=== PATIENT | female | born 1960 | race Two or more races ===

== ENCOUNTER 2019-02-27 04:17 | Emergency (ER) | payer BC ==
[2019-02-27] MEDS ORDERED: ASPIRIN 81 MG CHEWABLE TABLET PO ONE (04:32)
[2019-02-27 04:42] LABS: ABSOLUTE NEUTROPHIL COUNT 3.24; BASO % 0.3 % (0-6); EOS % 1.9 % (0-6); GRAN % 51.6 % (47-80); HEMATOCRIT 46.2 % (35.0-47.0); HEMOGLOBIN 15.6 gm/dl (11.6-16.0); LYMPH % 40.2 % (16-45); MEAN CELL VOLUME 94.5 fl (81-97); MEAN CORPUSCULAR HEMOGLOBIN 31.9 pg (27-33); MEAN CORPUSCULAR HGB CONC 33.8 g/dl (32-36); MEAN PLATELET VOLUME 9.1 fl (7.4-10.4); PLATELET COUNT 341 K/uL (130-400); RED BLOOD COUNT 4.89 M/uL (3.80-5.40); RED CELL DISTRIBUTION WIDTH 15.1 % (11.5-14.5); WHITE BLOOD COUNT W/O DIFF 6.3 K/uL (4.2-12.2)
[2019-02-27] MEDS: NITROGLYCERIN 0.4MG SL TABLET #25 BTL SL PRN ×3 (04:45→04:57)
--- NOTE | 2019-02-27 04:53 | Emergency Department Record ---
History of Present Illness - General Chief Complaint: Chest Pain Stated Complaint: CHEST PAIN Time Seen by Provider: 02/27/19 04:25 Source: Patient Mode of Arrival: Ambulatory Limitations: No limitations - History of Present Illness Initial Comments: pt has cp since yesterday. she states it got better when she came home from work and rested but then got worse again. it is 5/10. it radiated to her r arm. she has hi choleseterol and strong family hx with her brother and fahter having MIs MD Complaint: Chest pain Onset/Timin -: Days(s) Onset: Awoke with symptoms Pain Location: Substernal Pain Radiation: RUE Severity: Moderate Severity scale (1-10): 5 Quality: Dull, Heaviness Consistency: Constant Improves With: Rest Worsens With: Nothing Anginal Symptoms: Nausea Treatments Prior to Arrival: None - Related Data Home Medications Medication Instructions Recorded Confirmed Last Taken Atorvastatin Calcium [Lipitor] 10 mg PO DAILY 02/27/19 02/27/19 02/27/19 Hydrocodone/Acetaminophen 1 tab PO TID PRN 02/27/19 02/27/19 02/26/19 [Hydrocodone/Acetaminophen 7.5mg/325mg] Lorazepam 1 tab PO TID PRN 02/27/19 02/27/19 02/24/19 Allergies Allergy/AdvReac Type Severity Reaction Status Date / Time latex Allergy RASH Verified 02/27/19 04:32 Travel Screening - Travel/Exposure Within Last 30 Days Have you traveled within the last 30 days?: Yes Location Detail:: [place] - Travel/Exposure Within Last Year Have you traveled outside the [place] in the last year?: No - Additonal Travel Details Have you been exposed to anyone with a communicable illness?: No - Travel Symptoms Symptom Screening: None Review of Systems Reviewed: No additional complaints except as noted below Constitutional: Reports: As per HPI. Denies: Chills, Fever, Malaise, Night sweats, Weakness, Weight change Eyes: Reports: As per HPI. Denies: Eye discharge, Eye pain, Photophobia, Vision change ENT: Reports: As per HPI. Denies: Congestion, Dental pain, Ear pain, Epistaxis, Hearing loss, Throat pain Respiratory: Reports: As per HPI. Denies: Cough, Dyspnea, Hemoptysis, Stridor, Wheezes Cardiovascular: Reports: As per HPI, Chest pain. Denies: Arrhythmia, Dyspnea on exertion, Edema, Murmurs, Orthopnea, Palpitations, Paroxysmal nocturnal dyspnea, Rheumatic Fever, Syncope Endocrine: Reports: As per HPI. Denies: Fatigue, Heat or cold intolerance, Polydipsia, Polyuria Gastrointestinal: Reports: As per HPI, Nausea. Denies: Abdominal pain, Constipation, Diarrhea, Hematemesis, Hematochezia, Melena, Vomiting Genitourinary: Reports: As per HPI. Denies: Abnormal menses, Discharge, Dyspareunia, Dysuria, Frequency, Hematuria, Incontinence, Retention, Urgency Musculoskeletal: Reports: As per HPI. Denies: Arthralgia, Back pain, Gout, Joint swelling, Myalgia, Neck pain Skin: Reports: As per HPI. Denies: Bruising, Change in color, Change in hair/nails, Lesions, Pruritus, Rash Neurological: Reports: As per HPI. Denies: Abnormal gait, Confusion, Headache, Numbness, Paresthesias, Seizure, Tingling, Tremors, Vertigo, Weakness Psychiatric: Reports: As per HPI. Denies: Anxiety, Auditory hallucinations, Depression, Homicidal thoughts, Suicidal thoughts, Visual hallucinations Hematological/Lymphatic: Reports: As per HPI. Denies: Anemia, Blood Clots, Easy bleeding, Easy bruising, Swollen glands Past Medical History - SOCIAL HISTORY Smoking Status: Former smoker Alcohol Use: Rare Drug Use: Rare Drug Use Detail:: Marijuana - RESPIRATORY Hx Respiratory Disorders: Yes Hx Bronchitis: Yes - CARDIOVASCULAR Hx Cardio Disorders: No - NEURO Hx Neuro Disorders: No - GI Hx GI Disorders: No - Hx Genitourinary Disorders: No - ENDOCRINE Hx Endocrine Disorders: No - MUSCULOSKELETAL Hx Musculoskeletal Disorders: Yes Hx Arthritis: Yes - PSYCH Hx Psych Problems: Yes Hx Anxiety: Yes Hx Depression: Yes Family Medical History Any Significant Family History?: No Hx Heart Disease: Father, Brother/Sister Physical Exam - General General Appearance: Alert, Oriented x3, Cooperative, Mild distress - Head Head exam: Normal inspection - Eye Eye exam: Normal appearance, PERRL, EOMI Pupils: Normal accommodation - ENT ENT exam: Normal exam, Mucous membranes moist, Normal external ear exam, Normal orophraynx Ear exam: Normal external inspection. negative: External canal tenderness Nasal Exam: Normal inspection. negative: Discharge, Sinus tenderness Mouth exam: Normal external inspection, Tongue normal Teeth exam: Normal inspection. negative: Dental caries Throat exam: Normal inspection. negative: Tonsillar erythema, Tonsillar exudate - Neck Neck exam: Normal inspection, Full ROM. negative: Tenderness - Respiratory Respiratory exam: Normal lung sounds bilaterally. negative: Respiratory distress - Cardiovascular Cardiovascular Exam: Regular rate, Normal rhythm, Normal heart sounds - GI/Abdominal GI/Abdominal exam: Soft, Normal bowel sounds. negative: Tenderness - Rectal Rectal exam: Deferred - exam: Deferred - Extremities Extremities exam: Normal inspection, Full ROM, Normal capillary refill. negative: Tenderness - Back Back exam: Reports: Normal inspection, Full ROM. Denies: Muscle spasm, Rash noted, Tenderness - Neurological Neurological exam: Alert, CN II-XII intact, Normal gait, Oriented X3 - Psychiatric Psychiatric exam: Normal affect, Normal mood - Skin Skin exam: Dry, Intact, Normal color, Warm Course Vital Signs 02/27/19 02/27/19 04:25 04:46 Temperature 98.9 F Pulse Rate [ 68 [employer] ] Pulse Rate [ 72 Left] Respiratory 18 Rate Blood Pressure 138/93 135/88 [Left Arm] Pulse Ox 97 - Reevaluation(s) Reevaluation #1: 02/27/19 06:05 pt still having pain after ntg, toradol helped slightly Medical Decision Making - Lab Data Result diagrams: 02/27/19 04:30 02/27/19 04:30 Lab Results 02/27/19 Range/Units 04:30 WBC 6.3 (4.2-12.2) K/uL RBC 4.89 (3.80-5.40) M/uL Hgb 15.6 (11.6-16.0) gm/dl Hct 46.2 (35.0-47.0) % MCV 94.5 (81-97) fl MCH 31.9 (27-33) pg MCHC 33.8 (32-36) g/dl RDW 15.1 H (11.5-14.5) % Plt Count 341 (130-400) K/uL MPV 9.1 (7.4-10.4) fl Gran % 51.6 (47-80) % Lymphocytes % 40.2 (16-45) % Monocytes % 6.0 (0-9) % Eosinophils % 1.9 (0-6) % Basophils % 0.3 (0-6) % Absolute Neutrophils 3.24 Disposition Disposition: Transfer Clinical Impression: Chest pain Qualifiers: Chest pain type: unspecified Qualified Code(s): R07.9 - Chest pain, unspecified Disposition: Acute Care Hospital Transfer Transfer To: [facility] 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
[2019-02-27 04:59] LABS: BLOOD UREA NITROGEN 17 mg/dL (8-23); CREATININE 0.5 mg/dL (0.5-0.9); EST GLOMERULAR FILTRATION RATE > 60 mL/min
[2019-02-27 05:02] LABS: GLUCOSE,RANDOM 114 mg/dL (74-109)
[2019-02-27 05:05] LABS: CREATINE PHOSPHOKINASE 131 U/L (26-192)
[2019-02-27 05:07] LABS: CKMB 2.5 ng/mL (<3.77)
[2019-02-27] MEDS ORDERED: ONDANSETRON HCL IV 4 MG/2 ML VIAL IVP ONE (05:11)
[2019-02-27] MEDS ORDERED: KETOROLAC 30 MG/ML VIAL IVP ONE (05:11)
[2019-02-27] MEDS ORDERED: MORPHINE SULFATE 5 MG/ML VIAL IVP ONE ×2 (06:02→07:02)
[2019-02-27] MEDS ORDERED: MAGNESIUM HYDROXIDE/AL HYDROX 30 ML, LIDOCAINE VISC 2% 15ML 15 ML PO ONE ×2 (07:34)
--- NOTE | 2019-02-27 07:53 | RADIOLOGY REPORT ---
EXAMINATION: Two View Chest Radiographs EXAM DATE: 02/27/2019 7:51 AM TECHNIQUE: Frontal and lateral views INDICATION: chest pain COMPARISON: None ENCOUNTER: Not applicable FINDINGS: Cardiomediastinal structures unremarkable. No pulmonary consolidation or infiltration. No pneumothora x or pleural effusion. Cholecystectomy. IMPRESSION: No acute abnormality Dictated by: Hubert Mccall MD on 02/27/2019 7:52 AM. .
--- NOTE | 2019-02-27 09:08 | CT ANGIOGRAM REPORT ---
EXAMINATION: CT Angiography of the Thorax EXAM DATE: 02/27/2019 8:45 AM TECHNIQUE: Standard protocol CT angiogram images were obtained through the chest following the admini stration of intravenous contrast. Coronal and sagittal MIP 3-D reformations were performed. IV Contrast: The amount and type of contrast are recorded in the medical record. INDICATION: CP radiating to the back.. COMPARISON: Chest x-ray: 02/27/2019 ENCOUNTER: Not applicable FINDINGS: Pulmonary Artery: No pulmonary embolism is present. Aorta: No thoracic aortic aneurysm or dissection is present. On the noncontrast images there is no i ntramural hematoma in the wall of the aorta. The aorta is well enhanced and are normal in caliber. Th ere is minimal atherosclerotic calcification noted. Right Heart Strain: None. Heart : There is no pericardial effusion. The heart size is normal. There is minimal coronary artery calcification. Nirali and Mediastinum: No lymphadenopathy. Lung Parenchyma: There is mild dependent atelectasis. There is no focal infiltrate or pulmonary mass . Central Airways: Normal. Pleural Effusion: None. Upper Abdomen: The gallbladder is surgically absent the CBD is dilated up to approximately 13 mm and likely chronic and compensatory related to the previous cholecystectomy.. There is no choledocholith iasis. Musculoskeletal and Chest Wall: Unremarkable. Mild thoracic spondylosis. No evidence for a compressio n deformity. IMPRESSION: 1. There is no acute or chronic pulmonary embolism. 2. No evidence for thoracic aortic aneurysm or dissection. 3. Negative for acute cardiopulmonary process. Dictated by: Sukhjinder Field MD on 02/27/2019 8:54 AM. .
[2019-02-27] MEDS ORDERED: SUCRALFATE 1 G/10 ML UD PO ONE (09:58)
== END 2019-02-27 10:02 | disposition short-term general hospital (02) ==
LOC: ER 04:17
DX: R07.2 Precordial pain (principal); Z87.891 Personal history of nicotine dependence
CPT/HCPCS: 99285 ×2; 96376; 96374; 96375; 82550; 85025; 82553; 80048; 84484; 85379; 71046; 71275; 93005; 93010; Q9967; J1885; J2405